=== PATIENT | female | born 2000 | race Caucasian/White ===

== ENCOUNTER 2020-04-30 22:30 | Emergency (ER) | payer OTHER ==
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
[2020-05-01 00:34] LABS: ANION GAP 15.4 mmol/L (10-20); CHLORIDE,CL 104 mmol/L (98-107); SODIUM,NA 136 mmol/L (136-145)
[2020-05-01] MEDS ORDERED: Ketorolac 30 MG/ML SDV IM ONE (01:01)
[2020-05-01] MEDS ORDERED: Orphenadrine 60 MG/2 ML Inj IM STA (01:01)
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
== END 2020-05-01 01:35 | disposition home or self-care (01) ==
LOC: VM.ED 22:41
DX: S40.011A Contusion of right shoulder, initial encounter (principal); S40.212A Abrasion of left shoulder, initial encounter; V57.6XXA Passenger in pick-up truck or van injured in collision with fixed or stationary object in traffic accident, initial encounter; Y92.410 Unspecified street and highway as the place of occurrence of the external cause
CPT/HCPCS: 36415; 71046; 73030; 80053; 81001; 85025; 96372; 99284; J1885; J2360